=== PATIENT | male | born 1940 | race American Indian/Alaskan Native ===

== ENCOUNTER 2016-07-26 22:03 | Emergency (ER) | payer MEDICARE ==
--- NOTE | 2016-07-27 00:21 | Emergency Department Report ---
HPI - General Chief Complaint: Fall Time Seen by Provider: 07/27/16 00:12 - HPI HPI: Room 18 The patient is a 75-year-old male presenting with a chief complaint of fall from bed. The patient was sent from skilled nursing for evaluation after he fell to the floor falling out of bed. Patient reportedly fell 2 feet from the bed was found supine on the floor. The patient has a history of Alzheimer's and does not respond to questions. Location: Unknown Duration: [see above] Quality: Unknown Severity: Unknown Modifying factors: [see above] Context: [see above] Mode of transportation: [not driving] ED Past Medical Hx - Past Medical History Previous Medical History?: Yes Hx Hypertension: Yes Hx Renal Disease: Yes (UNSPECIFIC) Hx Psychiatric Treatment: Yes Hx Dementia: Yes Additional medical history: ALZHEIMER'S, UNSPECIFIED RENAL FAILURE, HYPERTENSION , INSOMNIA, MOOD D/O, SENILE DEMENTIA, ACUTE RESPIRATORY FAILURE, GENERALIZED MUSCLE WEAKNESS, - Surgical History Past Surgical History?: Yes Additional Surgical History: UNKNOWN. - Family History Family history: no significant - Social History Smoking Status: Never Smoker Substance Use Type: None - Medications Home Medications: Home Medications Medication Instructions Recorded Confirmed Last Taken Type Calcium Carbonate/Vitamin D3 1 each PO BID 01/13/14 01/13/14 01/13/14 History [Oystercal-D 500 mg-400 Unit Tb] Cholecalciferol (Vitamin D3) 50,000 unit PO DAILY 01/13/14 01/13/14 01/13/14 History [Vitamin D3] Divalproex Dr [Depakote Dr] 250 mg PO BID 01/13/14 01/13/14 01/13/14 History Donepezil HCl [Aricept Odt] 10 mg PO QDAY 01/13/14 01/13/14 01/13/14 History Lisinopril [Zestril] 5 mg PO QDAY 01/13/14 01/13/14 01/13/14 History Memantine (Nf) [Namenda] 5 mg PO QDAY 01/13/14 01/13/14 01/13/14 History Quetiapine Fumarate [Seroquel XR] 50 mg PO QDAY 01/13/14 01/13/14 01/13/14 History amLODIPine [Norvasc] 10 mg PO DAILY 01/13/14 01/13/14 01/13/14 History ED Review of Systems ROS: Stated complaint: FALL Other details as noted in HPI Comment: Unobtainable due to pts medical conditions Physical Exam - Physical Exam Vital Signs: Vital Signs 07/27/16 00:17 Pulse Rate 58 L Respiratory 16 Rate Blood Pressure 143/65 [Right] O2 Sat by Pulse 100 Oximetry Physical Exam: GENERAL: The patient is well-developed well-nourished male lying on stretcher not appearing to be in acute distress. [] HEENT: Normocephalic. Atraumatic. Extraocular motions are intact. Patient has moist mucous membranes. NECK: Supple. Trachea midline. No axial step offs CHEST/LUNGS: Clear to auscultation. There is no respiratory distress noted. HEART/CARDIOVASCULAR: Regular. There is no tachycardia. There is no gallop rub or murmur. ABDOMEN: Abdomen is soft, nontender. Patient has normal bowel sounds. There is no abdominal distention. SKIN: There is no rash. There is no edema. There is no diaphoresis. NEURO: The patient is awake and alert but does not respond verbally. Patient makes eye contact. The patient moves all 4 extremities. The patient does not cooperate with neurologic exam MUSCULOSKELETAL: There is no tenderness to palpation of all extremities. There is no evidence of acute injury. ED Course Vital Signs 07/27/16 00:17 Pulse Rate 58 L Respiratory 16 Rate Blood Pressure 143/65 [Right] O2 Sat by Pulse 100 Oximetry ED Medical Decision Making - Radiology Data Radiology results: report reviewed (CT head, CT cervical spine), image reviewed (pelvis x-ray, CT head, CT cervical spine) interpreted by me: Pelvis x-ray-no acute fractures ED cervical spine (read by radiologist)-there is no evidence of cervical spine fracture or subluxation. Degenerative changes CT head (read by radiologist)-there is no acute intracranial abnormality identified. - Differential Diagnosis closed head injury, ICH, cervical fracture, pelvic fracture Critical care attestation.: If time is entered above; I have spent that time in minutes in the direct care of this critically ill patient, excluding procedure time. ED Disposition Clinical Impression: Fall, Examination following fall from height with no apparent injury Disposition: DISCHARGED TO HOME OR SELFCARE Is pt being admited?: No Does the pt Need Aspirin: No Condition: Stable Additional Instructions: Return to the emergency department immediately should you develop worsening symptoms, fever, inability to tolerate food or liquid or any other concerns. Referrals: PRIMARY CARE, [Primary Care Provider] - 3-5 Days Time of Disposition: 05:04
--- NOTE | 2016-07-27 04:53 | Cat Scan Report ---
FINAL REPORT EXAM: CT HEAD/BRAIN WO CON HISTORY: fall from bed TECHNIQUE: CT of the head was performed. No intravenous contrast was administered. PRIORS: None. FINDINGS: There is advanced cerebral atrophy. Enlargement of the cerebral ventricles likely relates to ex vacuo dilatation. There is moderate ischemic change in the white matter. 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 There is no evidence of intracranial hemorrhage. There is no edema, mass effect or midline shift. There are no abnormal extra-axial fluid collections. The ventricles are appropriate for brain volume. There is no skull fracture seen. The visualized aspects of the sinuses are clear. IMPRESSION: There is no acute intracranial abnormality identified. Advanced cerebral atrophy
--- NOTE | 2016-07-27 04:55 | Cat Scan Report ---
FINAL REPORT EXAM: CT CERVICAL SPINE WO CON HISTORY: fall from bed TECHNIQUE: A noncontrast CT of the cervical spine was performed. Coronal and sagittal reformatted images were obtained. PRIORS: None. FINDINGS: Vertebral body heights and alignment are maintained. There is no evidence of acute fracture. There is multilevel degenerative disc disease which is most notable at C5-6 and C6-7. Posterior and uncovertebral spurring at C5-6 causes mild spinal stenosis and mild to moderate neuroforaminal narrowing, right more than left. There mild to moderate multilevel facet degenerative disease. IMPRESSION: There is no evidence of cervical spine fracture or subluxation. Degenerative changes
[2016-07-27 05:46] VITALS: BP 148/82
--- NOTE | 2016-07-27 07:38 | XRay Report ---
PELVIS RADIOGRAPH INDICATION: Found lying on floor. COMPARISON: None similar at this institution. FINDINGS: Portable, single frontal pelvic radiograph demonstrates intact articulation, including SI and hip joints. Few degenerative changes. Atherosclerotic vascular calcifications. Nonobstructive bowel gas pattern. CONCLUSION: No acute radiographic abnormality. Thank you for the opportunity to participate in this patient's care.
== END 2016-07-27 05:43 | disposition home or self-care (01) ==
LOC: ED 22:03
DX: Z04.3 Encounter for examination and observation following other accident (principal); I10 Essential (primary) hypertension; N28.9 Disorder of kidney and ureter, unspecified; G30.1 Alzheimer's disease with late onset; F02.80 Dementia in other diseases classified elsewhere, unspecified severity, without behavioral disturbance, psychotic disturbance, mood disturbance, and anxiety; N17.9 Acute kidney failure, unspecified; W06.XXXA Fall from bed, initial encounter; Y93.89 Activity, other specified; Y99.8 Other external cause status; Y92.122 Bedroom in nursing home as the place of occurrence of the external cause
CPT/HCPCS: 70450; 72125; 72170

== ENCOUNTER 2019-01-24 13:46 | Inpatient (IN) | payer MEDICARE ==
[2019-01-24] MEDS ORDERED: SODIUM CHLORIDE 0.9% 1000 ML 1,000 ML IV ONE (14:25)
--- NOTE | 2019-01-24 14:32 | Emergency Department Report ---
ED Altered Mental Status HPI - General Stated Complaint: HYPOTENSION Time Seen by Provider: 01/24/19 14:17 Source: EMS - History of Present Illness Initial Comments: 78-year-old male, history of dementia, presents to ED for altered mental status. snf reports they were attempting to the patient when he "stopped breathing" and became unresponsive. The nonrebreather was placed on patient and EMS was called. It is unclear how long patient was unresponsive. Upon EMS arrival, the patient was lethargic, but responsive to noxious stimuli. Patient was hypotensive, with systolic BP in the 80s. EMS was unable to record a room air O2 sat. Patient is currently awake, looking around the room, much more responsive. At baseline, patient is nonverbal. MD Complaint: altered mental status -: minutes(s) (30) Severity: moderate Consistency of Symptoms: waxing and waning Context: unknown Treatments Prior to Arrival: IV fluid, oxygen - Related Data Home Medications Medication Instructions Recorded Confirmed Last Taken Calcium Carbonate/Vitamin D3 1 each PO BID 01/13/14 01/13/14 01/13/14 [Oystercal-D 500 mg-400 Unit Tb] Cholecalciferol (Vitamin D3) 50,000 unit PO DAILY 01/13/14 01/13/14 01/13/14 [Vitamin D3] Divalproex Dr [Jil Johnson] 250 mg PO BID 01/13/14 01/13/14 01/13/14 Donepezil HCl [Aricept Odt] 10 mg PO QDAY 01/13/14 01/13/14 01/13/14 Lisinopril [Zestril] 5 mg PO QDAY 01/13/14 01/13/14 01/13/14 Memantine [Namenda] 5 mg PO QDAY 01/13/14 01/13/14 01/13/14 Quetiapine Fumarate [Seroquel XR] 50 mg PO QDAY 01/13/14 01/13/14 01/13/14 amLODIPine [Norvasc] 10 mg PO DAILY 01/13/14 01/13/14 01/13/14 Allergies Allergy/AdvReac Type Severity Reaction Status Date / Time No Known Allergies Allergy Verified 01/24/19 14:26 ED Review of Systems ROS: Stated complaint: HYPOTENSION Other details as noted in HPI Comment: Unobtainable due to pts medical conditions ED Past Medical Hx - Past Medical History Hx Hypertension: Yes Hx Renal Disease: Yes (UNSPECIFIC) Hx Psychiatric Treatment: Yes Hx Dementia: Yes Additional medical history: ALZHEIMER'S, UNSPECIFIED RENAL FAILURE, HYPERTENSION, INSOMNIA, MOOD D/O, SENILE DEMENTIA, ACUTE RESPIRATORY FAILURE, GENERALIZED MUSCLE WEAKNESS, - Surgical History Additional Surgical History: UNKNOWN. - Social History Smoking Status: Never Smoker Substance Use Type: None - Medications Home Medications: Home Medications Medication Instructions Recorded Confirmed Last Taken Type Calcium Carbonate/Vitamin D3 1 each PO BID 01/13/14 01/13/14 01/13/14 History [Oystercal-D 500 mg-400 Unit Tb] Cholecalciferol (Vitamin D3) 50,000 unit PO DAILY 01/13/14 01/13/14 01/13/14 History [Vitamin D3] Divalproex Dr [Depakote Dr] 250 mg PO BID 01/13/14 01/13/14 01/13/14 History Donepezil HCl [Aricept Odt] 10 mg PO QDAY 01/13/14 01/13/14 01/13/14 History Lisinopril [Zestril] 5 mg PO QDAY 01/13/14 01/13/14 01/13/14 History Memantine [Namenda] 5 mg PO QDAY 01/13/14 01/13/14 01/13/14 History Quetiapine Fumarate [Seroquel XR] 50 mg PO QDAY 01/13/14 01/13/14 01/13/14 History amLODIPine [Norvasc] 10 mg PO DAILY 01/13/14 01/13/14 01/13/14 History ED Physical Exam - General General appearance: alert, in no apparent distress - Head Head exam: Present: atraumatic, normocephalic - Eye Eye exam: Present: normal appearance - ENT ENT exam: Present: mucous membranes dry - Neck Neck exam: Present: normal inspection - Respiratory Respiratory exam: Present: normal lung sounds bilaterally. Absent: respiratory distress, wheezes, rales, rhonchi, stridor - Cardiovascular Cardiovascular Exam: Present: regular rate, normal rhythm - GI/Abdominal GI/Abdominal exam: Present: soft. Absent: distended, tenderness - Extremities Exam Extremities exam: Present: normal inspection - Neurological Exam Neurological exam: Present: alert, other (nonverbal, sitting up in stretcher, looks around room, turns head when name is called) - Psychiatric Psychiatric exam: Present: normal affect, normal mood ED Course Vital Signs 01/24/19 01/24/19 01/24/19 13:54 14:01 14:09 Pulse Rate 91 H 88 Respiratory 13 16 Rate Blood Pressure 112/67 112/67 Blood Pressure [Left] O2 Sat by Pulse 85 88 99 Oximetry 01/24/19 01/24/19 01/24/19 14:11 14:21 14:30 Pulse Rate 93 H 86 93 H Respiratory 22 12 23 Rate Blood Pressure 112/67 112/67 108/46 Blood Pressure [Left] O2 Sat by Pulse 69 L 88 Oximetry 01/24/19 01/24/19 01/24/19 14:41 14:51 15:00 Pulse Rate 90 85 77 Respiratory 13 14 10 L Rate Blood Pressure 108/46 108/46 110/59 Blood Pressure [Left] O2 Sat by Pulse 65 L 100 Oximetry 01/24/19 01/24/19 01/24/19 15:08 15:11 15:21 Pulse Rate 77 78 110 H Respiratory 12 10 L 19 Rate Blood Pressure 110/59 110/59 Blood Pressure 110/59 [Left] O2 Sat by Pulse 100 100 99 Oximetry 01/24/19 01/24/19 01/24/19 15:30 15:41 15:51 Pulse Rate 93 H 91 H 81 Respiratory 21 15 17 Rate Blood Pressure 114/69 114/69 114/69 Blood Pressure [Left] O2 Sat by Pulse 49 L Oximetry 01/24/19 01/24/19 01/24/19 16:16 16:21 16:30 Pulse Rate 82 79 Respiratory 11 L 12 Rate Blood Pressure 114/69 108/71 101/70 Blood Pressure [Left] O2 Sat by Pulse 46 L 62 L 53 L Oximetry 01/24/19 01/24/19 01/24/19 16:41 16:51 17:00 Pulse Rate 70 123 H 81 Respiratory 10 L 16 18 Rate Blood Pressure 101/70 114/69 120/54 Blood Pressure [Left] O2 Sat by Pulse 62 L 85 Oximetry 01/24/19 01/24/19 01/24/19 17:10 17:21 17:30 Pulse Rate 77 80 82 Respiratory 11 L 19 16 Rate Blood Pressure 101/70 120/54 119/63 Blood Pressure [Left] O2 Sat by Pulse 51 L 56 L 93 Oximetry 01/24/19 01/24/19 01/24/19 17:41 17:51 18:01 Pulse Rate 78 119 H 99 H Respiratory 18 21 20 Rate Blood Pressure 119/63 119/63 112/56 Blood Pressure [Left] O2 Sat by Pulse 50 L 66 L Oximetry 01/24/19 01/24/19 01/24/19 18:11 18:14 18:21 Pulse Rate 85 85 86 Respiratory 24 16 22 Rate Blood Pressure 112/56 112/56 Blood Pressure 112/56 [Left] O2 Sat by Pulse 95 99 91 Oximetry 01/24/19 01/24/19 01/24/19 18:31 18:41 18:51 Pulse Rate 86 74 79 Respiratory 25 H 23 16 Rate Blood Pressure 106/64 106/64 106/64 Blood Pressure [Left] O2 Sat by Pulse 100 95 81 L Oximetry 01/24/19 01/24/19 01/24/19 19:01 19:11 19:21 Pulse Rate 79 82 78 Respiratory 21 14 20 Rate Blood Pressure 133/69 133/69 133/69 Blood Pressure [Left] O2 Sat by Pulse 96 76 L 100 Oximetry 01/24/19 01/24/19 01/24/19 19:31 19:41 19:51 Pulse Rate 74 88 73 Respiratory 16 24 25 H Rate Blood Pressure 123/48 123/48 123/48 Blood Pressure [Left] O2 Sat by Pulse 100 100 98 Oximetry - Lab Data Result diagrams: 01/24/19 14:44 01/24/19 14:44 Lab Results 01/24/19 01/24/19 01/24/19 Range/Units 14:44 14:44 14:44 WBC 5.5 (4.5-11.0) K/mm3 RBC 3.99 (3.65-5.03) M/mm3 Hgb 11.2 L (11.8-15.2) gm/dl Hct 34.9 L (35.5-45.6) % MCV 88 (84-94) fl MCH 28 (28-32) pg MCHC 32 (32-34) % RDW 16.4 H (13.2-15.2) % Plt Count 367 (140-440) K/mm3 Lymph % (Auto) 18.2 (13.4-35.0) % [place] % (Auto) 5.6 (0.0-7.3) % Eos % (Auto) 0.5 (0.0-4.3) % Baso % (Auto) 2.8 H (0.0-1.8) % Lymph # 1.0 L (1.2-5.4) K/mm3 [place] # 0.3 (0.0-0.8) K/mm3 Eos # 0.0 (0.0-0.4) K/mm3 Baso # 0.2 H (0.0-0.1) K/mm3 Seg Neutrophils % 72.9 H (40.0-70.0) % Seg Neutrophils # 4.0 (1.8-7.7) K/mm3 Sodium 144 (137-145) mmol/L Potassium 4.2 (3.6-5.0) mmol/L Chloride 104.1 (98-107) mmol/L Carbon Dioxide 22 (22-30) mmol/L Anion Gap 22 mmol/L BUN 42 H (9-20) mg/dL Creatinine 1.5 (0.8-1.5) mg/dL Estimated GFR 55 ml/min BUN/Creatinine Ratio 28 % Glucose 130 H (75-100) mg/dL Calcium 9.8 (8.4-10.2) mg/dL Total Bilirubin 1.10 (0.1-1.2) mg/dL Direct Bilirubin 0.2 (0-0.2) mg/dL Indirect Bilirubin 0.9 mg/dL AST 18 (5-40) units/L ALT 21 (7-56) units/L Alkaline Phosphatase 69 (35-129) units/L Troponin T < 0.010 (0.00-0.029) ng/mL Total Protein 8.2 (6.3-8.2) g/dL Albumin 3.8 L (3.9-5) g/dL Albumin/Globulin Ratio 0.9 % - EKG Data -: EKG Interpreted by Wy EKG shows normal: sinus rhythm, axis, intervals, QRS complexes, ST-T waves Rate: normal Interpretation: no acute changes - Radiology Data Radiology results: report reviewed, image reviewed - Medical Decision Making 78-year-old male presents to ED for what seems to have been a syncopal episode at the skilled nursing. Patient was initially hypotensive, however responded well to IV fluids. Patient seems to be having baseline at this time. Workup is unremarkable except for acute kidney injury. Chest x-ray and head CT were normal. EKG is normal. Will admit to hospitalist for observation. - Differential Diagnosis arrythmia, infection, dehydration Critical care attestation.: If time is entered above; I have spent that time in minutes in the direct care o f this critically ill patient, excluding procedure time. ED Disposition Clinical Impression: Syncope, Acute kidney injury Disposition: [id number] OP ADMIT IP TO THIS HOSP Is pt being admited?: Yes Condition: Stable Time of Disposition: 16:54
--- NOTE | 2019-01-24 14:49 | XRay Report ---
CHEST 1 VIEW 01/24/2019 2:26 PM INDICATION / CLINICAL INFORMATION: Altered mental status. COMPARISON: None available. FINDINGS: SUPPORT DEVICES: None. HEART / MEDIASTINUM: Normal heart size. Atherosclerosis in the thoracic aorta. LUNGS / PLEURA: No significant pulmonary or pleural abnormality. No pneumothorax. ADDITIONAL FINDINGS: No significant additional findings. IMPRESSION: 1. No acute findings. Signer Name: Nasim Crandall MD Signed: 01/24/2019 2:45 PM Workstation Name: [id number]
[2019-01-24 15:07] LABS: Basophils # (Auto) 0.2 K/mm3 (0.0-0.1); Basophils % (Auto) 2.8 % (0.0-1.8); Eosinophils % (Auto) 0.5 % (0.0-4.3); Hematocrit 34.9 % (35.5-45.6); Hemoglobin 11.2 gm/dl (11.8-15.2); Lymphocytes % (Auto) 18.2 % (13.4-35.0); Mean Corpuscular HGB Conc 32 % (32-34); Mean Corpuscular Volume 88 fl (84-94); Monocytes # (Auto) 0.3 K/mm3 (0.0-0.8); Monocytes % (Auto) 5.6 % (0.0-7.3); Platelet Count 367 K/mm3 (140-440); Red Blood Count 3.99 M/mm3 (3.65-5.03); Red Cell Distribution Width 16.4 % (13.2-15.2)
[2019-01-24 15:29] LABS: Albumin 3.8 g/dL (3.9-5); Bilirubin,Direct 0.2 mg/dL (0-0.2); Calcium 9.8 mg/dL (8.4-10.2)
--- NOTE | 2019-01-24 16:41 | Cat Scan Report ---
CT head/brain wo con INDICATION / CLINICAL INFORMATION: 78 years Male; AMS. TECHNIQUE: Routine CT head without contrast. All CT scans at this location are performed using CT dos e reduction for ALARA by means of automated exposure control. COMPARISON: The study is compared to the previous CT of 07/27/2016. FINDINGS: BRAIN / INTRACRANIAL CONTENTS: The motion degrades image quality. However, there appears to be extens sunita cerebral white matter disease most consistent with microvascular angiopathy. There is a persisten t old infarct involving the right thalamus at. There is no clear CT evidence of acute intracranial he morrhage or significant mass effect. There is enlargement of the third and lateral ventricles which may have slightly progressed from the previous CT and correlation would be needed regarding normal pressure hydrocephalus. There is again n ote of developmental cavum septum vergae. ORBITS: No significant abnormality of visualized orbits. SINUSES / MASTOIDS: No significant abnormality the visualized paranasal sinuses or mastoid air cells. This mild angulation of the right nasal bone which appears chronic at; correlation be needed. CRANIOCERVICAL JUNCTION: No significant abnormality. ADDITIONAL FINDINGS: None. IMPRESSION: 1. 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 2. There is prominence of the ventricular system which may be slightly out of proportion to the degre e of cerebral atrophy and correlation would be needed regarding normal pressure hydrocephalus. Signer Name: Antonio Da Silva MD Signed: 01/24/2019 4:37 PM Workstation Name: [id number]
--- NOTE | 2019-01-24 17:17 | History and Physical Report ---
History of Present Illness Date of examination: 01/24/19 Date of admission: 01/24/19 Chief complaint: Syncope History of present illness: 78-year-old male, history of dementia, presents to ED from SNF for altered mental status. alf reports they were attempting to feed the patient when he "stopped breathing" and became unresponsive. The nonrebreather was p laced on patient and EMS was called. It is unclear how long patient was unresponsive. Upon EMS arrival, the patient was lethargic, but responsive to noxious stimuli. Patient was hypotensive, with systolic BP in the 80s. EMS was unable to record a room air O2 sat. Patient is currently awake, looking around the room, much more responsive, has no respiratory distress. At baseline, patient is nonverbal. CT head showed hydrocephalus, CXR w/o any acute findings. He is being admitted for O/N observation. Review of System: Unobtainable Medications and Allergies Allergies Allergy/AdvReac Type Severity Reaction Status Date / Time No Known Allergies Allergy Verified 01/24/19 14:26 Home Medications Medication Instructions Recorded Confirmed Last Taken Type Calcium Carbonate/Vitamin D3 1 each PO BID 01/13/14 01/13/14 01/13/14 History [Oystercal-D 500 mg-400 Unit Tb] Cholecalciferol (Vitamin D3) 1,000 unit PO DAILY 01/13/14 01/25/19 01/13/14 History [Vitamin D3] Divalproex [Jil Johnson] 250 mg PO BID 01/13/14 01/13/14 01/13/14 History Donepezil HCl [Aricept Odt] 10 mg PO QHS 01/13/14 01/25/19 01/13/14 History Lisinopril [Zestril] 5 mg PO QDAY 01/13/14 01/25/19 01/13/14 History Memantine [Namenda] 5 mg PO BID 01/13/14 01/25/19 01/13/14 History Quetiapine Fumarate [Seroquel XR] 50 mg PO QDAY 01/13/14 01/13/14 01/13/14 History amLODIPine [Norvasc] 10 mg PO DAILY 01/13/14 01/25/19 01/13/14 History Aspirin [Aspirin BABY CHEW TAB] 81 mg PO QDAY 01/25/19 01/25/19 Unknown History AtorvaSTATin [Lipitor] 40 mg PO QHS 01/25/19 01/25/19 Unknown History Latanoprost 0.005% 1 drop OU QHS 01/25/19 01/25/19 Unknown History Magnesium Hydroxide [Milk of 30 ml PO Q72H 01/25/19 01/25/19 Unknown History Magnesia] Active Meds: Active Medications Divalproex Sodium (Depakote Dr) 250 mg PO BID YUDITH Dextrose/Sodium Chloride (D5ns) 1,000 mls @ 75 mls/hr IV DIRECT YUDITH Memantine (Memantine) 5 mg PO QDAY YUDITH Miscellaneous Medication (Calcium Carbonate/Vitamin D3 [Oystercal-D 500 Mg-400 Unit Tb]) 1 each PO BID YUDITH Miscellaneous Medication (Cholecalciferol (Vitamin D3) [Vitamin D3]) 50,000 unit PO DAILY YUDITH Miscellaneous Medication (Donepezil Hcl [Aricept Odt]) 10 mg PO QDAY YUDITH Miscellaneous Medication (Quetiapine Fumarate [Seroquel Xr]) 50 mg PO QDAY YUDITH Exam - Physical Exam Narrative exam: GENERAL: mal-nourished elderly AAM lying on bed appeared to be in no discomfort. HEENT: Normocephalic. Atraumatic. No conjunctival congestion or icterus. Patient has moist mucous membranes. NECK: Supple. Trachea midline. CHEST/LUNGS: Clear to auscultated bilaterally, breathing nonlabored. No wheezes crackles or rhonchi. HEART/CARDIOVASCULAR: Regular in rate and rhythm. S1 and S2 positive. ABDOMEN: Abdomen is soft, nontender. Patient has normal bowel sounds. SKIN: There is no rash. Warm and dry. NEURO: No focal motor deficit. does not Follow command. MUSCULOSKELETAL: No joint effusion or tenderness. EXTRIMITY: No edema, no cyanosis or clubbing. PSYCH: Cooperative. - Constitutional Vitals: Temp Pulse Resp BP Pulse Ox 77 12 110/59 100 01/24/19 15:08 01/24/19 15:08 01/24/19 15:08 01/24/19 15:08 Results - Labs CBC & Chem 7: 01/24/19 14:44 01/24/19 14:44 Labs: Abnormal lab results 01/24/19 01/24/19 Range/Units 14:44 14:44 Hgb 11.2 L (11.8-15.2) gm/dl Hct 34.9 L (35.5-45.6) % RDW 16.4 H (13.2-15.2) % Baso % (Auto) 2.8 H (0.0-1.8) % Lymph # 1.0 L (1.2-5.4) K/mm3 Baso # 0.2 H (0.0-0.1) K/mm3 Seg Neutrophils % 72.9 H (40.0-70.0) % BUN 42 H (9-20) mg/dL Glucose 130 H (75-100) mg/dL Albumin 3.8 L (3.9-5) g/dL Assessment and Plan Syncopal episode Acute respiratory distress,resolved History of dementia Hypotension - baseline BP unknown, could be from dehydration Normal pressure hydrocephalus (NPH) Severe PCM - admit to remote tele - start on iv fluid, get speech eval - monitor BP, resume home meds - Neuro consult for NPH - monitor clinically, dietary consult - get 2d echo, carotid doppler - DVT Px Radiological data: Chest x-ray: 1. No acute findings. CT head without contrast: 1. 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 2. There is prominence of the ventricular system which may be slightly out of proportion to the degree of cerebral atrophy and correlation would be needed regarding normal pressure hydrocephalus.
[2019-01-24] MEDS ORDERED: ACETAMINOPHEN 325 MG TAB PO PRN (18:26)
[2019-01-24] MEDS ORDERED: hydrALAZINE 20 MG/1 ML INJ IV PRN (18:26)
--- NOTE | 2019-01-24 18:29 | Consultation ---
History of Present Illness Consult date: 01/24/19 Chief complaint: abnormal CT head History of present illness: This is a 78 YO M who reported to the ED after being found altered, respiratory distress. Apparently pt is non verbal at baseline. Unclear if he walks or is continent. Notes say he has dementia. Past History Past Medical History: other (dementia) Past Surgical History: Other (unable to obtain) Social history: full code ([place] resident) Family history: other (unable to obtain) Medications and Allergies Allergies Allergy/AdvReac Type Severity Reaction Status Date / Time No Known Allergies Allergy Verified 01/24/19 14:26 Home Medications Medication Instructions Recorded Confirmed Last Taken Type Calcium Carbonate/Vitamin D3 1 each PO BID 01/13/14 01/13/14 01/13/14 History [Oystercal-D 500 mg-400 Unit Tb] Cholecalciferol (Vitamin D3) 50,000 unit PO DAILY 01/13/14 01/13/14 01/13/14 History [Vitamin D3] Divalproex Dr [Jil Johnson] 250 mg PO BID 01/13/14 01/13/14 01/13/14 History Donepezil HCl [Aricept Odt] 10 mg PO QDAY 01/13/14 01/13/14 01/13/14 History Lisinopril [Zestril] 5 mg PO QDAY 01/13/14 01/13/14 01/13/14 History Memantine [Namenda] 5 mg PO QDAY 01/13/14 01/13/14 01/13/14 History Quetiapine Fumarate [Seroquel XR] 50 mg PO QDAY 01/13/14 01/13/14 01/13/14 History amLODIPine [Norvasc] 10 mg PO DAILY 01/13/14 01/13/14 01/13/14 History Active Meds: Active Medications Calcium/Vitamin D (Oysco D 500 Mg-200 Unit) 1 each PO QDAY YUDITH Divalproex Sodium (Janeente Dr) 250 mg PO BID YUDITH Donepezil HCl (Aricept) 10 mg PO QDAY YUDITH Ergocalciferol (Vitamin D2) 50,000 unit PO Tu YUDITH Dextrose/Sodium Chloride (D5ns) 1,000 mls @ 75 mls/hr IV DIRECT YUDITH Memantine (Memantine) 5 mg PO QDAY YUDITH Miscellaneous Medication (Quetiapine Fumarate [Seroquel Xr]) 50 mg PO QDAY YUDITH Review of Systems ROS unobtainable: due to mental status Physical Examination - Vital Signs Vital Signs: Vital Signs Pulse Resp BP Pulse Ox 88 16 112/67 99 01/24/19 14:09 01/24/19 14:09 01/24/19 14:09 01/24/19 14:09 - EENT EENT: Present: PERRL, mucous membranes moist - Respiratory Respiratory: Present: lungs clear - Cardiovascular Cardiovascular: Present: regular rate - Gastrointestinal Gastrointestinal: Present: normoactive bowel sounds - Integumentary Integumentary: Present: normal - Neurologic Cranial nerve examination: PERRL, EOMI, V1/V2/V3 grossly intact, face symmetric Speech examination: other (non verbal) Detailed motor examination: other (increased tone in all extremities, moves spontaneously) Results - Laboratory Findings CBC and BMP: 01/24/19 14:44 01/24/19 14:44 Abnormal Lab Findings: Abnormal Labs 01/24/19 01/24/19 14:44 14:44 Hgb 11.2 L Hct 34.9 L RDW 16.4 H Baso % (Auto) 2.8 H Lymph # 1.0 L Baso # 0.2 H Seg Neutrophils % 72.9 H BUN 42 H Glucose 130 H Albumin 3.8 L - Diagnostic Findings Additional findings: CT head with ventriculomegaly, MAY be out of proportion to atrophy Assessment and Plan Abnormal CT head REcommend: Consulted for possible NPH- treatment would be shunt and would be determined outpatient. However, doubt pt is a good candidate for shunt. Would need to determine how he ambulates and if this declined recently. If he walks well or if he has not walked in a while shunt will not be helpful. Follow up with neuro outpatient
[2019-01-24] MEDS: D5W/0.9% NACL 1,000 ML IV SCH (21:23)
[2019-01-24] MEDS: DIVALPROEX DR 250 MG TAB PO SCH (21:24)
[2019-01-24] MEDS: FAMOTIDINE 10 MG TAB PO SCH (21:24)
[2019-01-24] MEDS: ENOXAPARIN 30 MG/0.3 ML INJ SUB-Q SCH (21:24)
[2019-01-24] MEDS ORDERED: ENOXAPARIN 40 MG/0.4 ML INJ SUB-Q SCH (22:00)
[2019-01-24] MEDS ORDERED: CALCIUM CARBONATE PO SCH (22:00)
[2019-01-24] MEDS ORDERED: [UNRECOGNIZED DRUG - OTHER] PO SCH (22:00)
[2019-01-24] MEDS ORDERED: VITAMIN D3 PO SCH (22:00)
[2019-01-25 08:18] LABS: Bacteria,Urine 4+ /HPF (Negative); Bilirubin,Urine NEG (Negative); Blood,Urine MOD (Negative); Color,Urine Yellow (Yellow); Mucus,Urine FEW /HPF; Urobilinogen,Urine < 2.0 mg/dL (<2.0)
[2019-01-25] MEDS: DONEPEZIL 10 MG TAB PO SCH (09:37)
[2019-01-25] MEDS: MEMANTINE 5 MG TAB PO SCH (09:38)
[2019-01-25] MEDS: FAMOTIDINE 10 MG TAB PO SCH ×2 (09:38→21:56)
[2019-01-25] MEDS: CALCIUM CARBONATE/VITAMIN D3 500 MG-200 UNIT TAB PO SCH (09:38)
[2019-01-25] MEDS: DIVALPROEX DR 250 MG TAB PO SCH ×2 (09:38→21:56)
[2019-01-25] MEDS ORDERED: DONEPEZIL HCL 10 MG PO SCH (10:00)
[2019-01-25] MEDS ORDERED: CHOLECALCIFEROL 50000 UNIT PO SCH (10:00)
[2019-01-25] MEDS ORDERED: QUETIAPINE FUMARATE 50 MG PO SCH (10:00)
[2019-01-25 10:56] LABS: BUN/Creatinine Ratio 33; Blood Urea Nitrogen 39 mg/dL (9-20); Calcium 9.1 mg/dL (8.4-10.2); Hemolysis Index 0
--- NOTE | 2019-01-25 12:00 | Vascular Lab Report ---
Bilateral Carotid Doppler Ultrasound INDICATION : syncope TECHNIQUE: Grayscale and color Doppler imaging performed through the neck. COMPARISON: None FINDINGS: Right: There is no significant atherosclerotic disease. Peak systolic velocity in the CCA is 80 cm/ s with end-diastolic velocity of 12 cm/s. Peak systolic velocity in the proximal ICA is 80 cm/s with end-diastolic velocity of 13 cm/s. ICA to CCA ratio is less than 2. There is antegrade flow in the E CA and the vertebral artery. Left: There is no significant atherosclerotic disease. Peak systolic velocity in the CCA is 85 cm/s w ith end-diastolic velocity of 12 cm/s. Peak systolic velocity in the proximal ICA is 84 cm/s with end -diastolic velocity of 13 cm/s. ICA to CCA ratio is less than 2. There is antegrade flow in the ECA and the vertebral artery. IMPRESSION: No hemodynamically significant stenosis by NASCET criteria. Signer Name: Devon Gómez MD Signed: 01/25/2019 11:56 AM Workstation Name: [id number]
[2019-01-25] MEDS: D5W/0.9% NACL 1,000 ML IV SCH (12:37)
[2019-01-25] MEDS: DEXTROSE 5% IN WATER 1,000 ML IV SCH (20:08)
[2019-01-25] MEDS: ENOXAPARIN 30 MG/0.3 ML INJ SUB-Q SCH (21:56)
--- NOTE | 2019-01-25 23:33 | Progress Note ---
Assessment and Plan Assessment and plan: Syncopal episode Acute respiratory distress,resolved History of dementia Hypotension - baseline BP unknown, could be from dehydration Normal pressure hydrocephalus (NPH) Severe PCM UTI - admitted to remote tele - get speech eval - monitor BP, resume home meds - Neuro consult for NPH - monitor clinically, dietary consult - DVT Px History Interval history: Patient presented with syncope Hospitalist Physical - Physical exam Narrative exam: GENERAL: mal-nourished elderly AAM lying on bed appeared to be in no discomfort. HEENT: Normocephalic. Atraumatic. No conjunctival congestion or icterus. Patient has moist mucous membranes. NECK: Supple. Trachea midline. CHEST/LUNGS: Clear to auscultated bilaterally, breathing nonlabored. No wheezes crackles or rhonchi. HEART/CARDIOVASCULAR: Regular in rate and rhythm. S1 and S2 positive. ABDOMEN: Abdomen is soft, nontender. Patient has normal bowel sounds. SKIN: There is no rash. Warm and dry. NEURO: No focal motor deficit. does not Follow command. MUSCULOSKELETAL: No joint effusion or tenderness. EXTRIMITY: No edema, no cyanosis or clubbing. PSYCH: Cooperative. - Constitutional Vitals: Temp Pulse Resp BP Pulse Ox 98.0 F 70 18 128/66 91 01/25/19 20:32 01/25/19 12:00 01/25/19 20:32 01/25/19 20:32 01/25/19 13:00 Results - Labs CBC & Chem 7: 01/26/19 05:37 01/26/19 05:37 Labs: Laboratory Last Values WBC 5.5 K/mm3 (4.5-11.0) 01/24/19 14:44 RBC 3.99 M/mm3 (3.65-5.03) 01/24/19 14:44 Hgb 11.2 gm/dl (11.8-15.2) L 01/24/19 14:44 Hct 34.9 % (35.5-45.6) L 01/24/19 14:44 MCV 88 fl (84-94) 01/24/19 14:44 MCH 28 pg (28-32) 01/24/19 14:44 MCHC 32 % (32-34) 01/24/19 14:44 RDW 16.4 % (13.2-15.2) H 01/24/19 14:44 Plt Count 367 K/mm3 (140-440) 01/24/19 14:44 Lymph % (Auto) 18.2 % (13.4-35.0) 01/24/19 14:44 [place] % (Auto) 5.6 % (0.0-7.3) 01/24/19 14:44 Eos % (Auto) 0.5 % (0.0-4.3) 01/24/19 14:44 Baso % (Auto) 2.8 % (0.0-1.8) H 01/24/19 14:44 Lymph # 1.0 K/mm3 (1.2-5.4) L 01/24/19 14:44 [place] # 0.3 K/mm3 (0.0-0.8) 01/24/19 14:44 Eos # 0.0 K/mm3 (0.0-0.4) 01/24/19 14:44 Baso # 0.2 K/mm3 (0.0-0.1) H 01/24/19 14:44 Seg Neutrophils % 72.9 % (40.0-70.0) H 01/24/19 14:44 Seg Neutrophils # 4.0 K/mm3 (1.8-7.7) 01/24/19 14:44 Sodium 148 mmol/L (137-145) H 01/25/19 10:15 Potassium 4.2 mmol/L (3.6-5.0) 01/25/19 10:15 Chloride 111.4 mmol/L (98-107) H 01/25/19 10:15 Carbon Dioxide 23 mmol/L (22-30) 01/25/19 10:15 Anion Gap 18 mmol/L 01/25/19 10:15 BUN 39 mg/dL (9-20) H 01/25/19 10:15 Creatinine 1.2 mg/dL (0.8-1.5) 01/25/19 10:15 Estimated GFR > 60 ml/min 01/25/19 10:15 BUN/Creatinine Ratio 33 % 01/25/19 10:15 Glucose 83 mg/dL (75-100) 01/25/19 10:15 Calcium 9.1 mg/dL (8.4-10.2) 01/25/19 10:15 Total Bilirubin 1.10 mg/dL (0.1-1.2) 01/24/19 14:44 Direct Bilirubin 0.2 mg/dL (0-0.2) 01/24/19 14:44 Indirect Bilirubin 0.9 mg/dL 01/24/19 14:44 AST 18 units/L (5-40) 01/24/19 14:44 ALT 21 units/L (7-56) 01/24/19 14:44 Alkaline Phosphatase 69 units/L (35-129) 01/24/19 14:44 Troponin T < 0.010 ng/mL (0.00-0.029) 01/24/19 14:44 Total Protein 8.2 g/dL (6.3-8.2) 01/24/19 14:44 Albumin 3.8 g/dL (3.9-5) L 01/24/19 14:44 Albumin/Globulin Ratio 0.9 % 01/24/19 14:44 Urine Color Yellow (Yellow) 01/25/19 07:23 Urine Turbidity Slightly-cloudy (Clear) 01/25/19 07:23 Urine pH 6.0 (5.0-7.0) 01/25/19 07:23 Ur Specific [place] 1.020 (1.003-1.030) 01/25/19 07:23 Urine Protein 30 mg/dl mg/dL (Negative) 01/25/19 07:23 Urine Glucose (UA) Neg mg/dL (Negative) 01/25/19 07:23 Urine Ketones Neg mg/dL (Negative) 01/25/19 07:23 Urine Blood Mod (Negative) 01/25/19 07:23 Urine Nitrite Pos (Negative) 01/25/19 07:23 Urine Bilirubin Neg (Negative) 01/25/19 07:23 Urine Urobilinogen < 2.0 mg/dL (<2.0) 01/25/19 07:23 Ur Leukocyte Esterase Lg (Negative) 01/25/19 07:23 Urine WBC (Auto) 63.0 /HPF (0.0-6.0) H 01/25/19 07:23 Urine RBC (Auto) 43.0 /HPF (0.0-6.0) 01/25/19 07:23 U Epithel Cells (Auto) 1.0 /HPF (0-13.0) 01/25/19 07:23 Urine Bacteria (Auto) 4+ /HPF (Negative) 01/25/19 07:23 Urine Mucus Few /HPF 01/25/19 07:23 Active Medications - Current Medications Current Medications: Generic Name Dose Route Start Last Admin Trade Name Freq PRN Reason Stop Dose Admin Acetaminophen 650 mg 01/24/19 18:26 Tylenol PO Q4H PRN Pain MILD(1-3)/Fever >100.5/ARVIZU Calcium/Vitamin D 1 each 01/25/19 10:00 01/25/19 09:38 Oysco D 500 Mg-200 Unit PO Not Given QDAY YUDITH Divalproex Sodium 250 mg 01/24/19 22:00 01/25/19 21:[address] PO 250 mg BID YUDITH Administration Donepezil HCl 10 mg 01/25/19 10:00 01/25/19 09:37 Aricept PO Not Given QDAY YUDITH Enoxaparin Sodium 30 mg 01/24/19 22:00 01/25/19 21:56 Enoxaparin SUB-Q 30 mg DAILY@2200 YUDITH Administration Ergocalciferol 50,000 unit 01/31/19 17:21 Vitamin D2 PO Tu [facility] Famotidine 10 mg 01/24/19 22:00 01/25/19 21:56 Pepcid PO 10 mg BID YUDITH Administration Hydralazine HCl 5 mg 01/24/19 18:26 Apresoline IV Q30MIN PRN HTN SYS>180 GENNA>100 Dextrose 1,000 mls @ 75 mls/hr 01/25/19 13:00 01/25/19 20:08 D5w IV 75 mls/hr DIRECT YUDITH Administration Memantine 5 mg 01/25/19 10:00 01/25/19 09:38 Memantine PO Not Given QDAY YUDITH Nutrition/Malnutrition Assess - Dietary Evaluation Nutrition/Malnutrition Findings: Nutrition Notes Start: 01/25/19 14:03 Freq: Status: Active Protocol: Document 01/25/19 14:03 CT (Rec: 01/25/19 14:15 CT [id number]) Co-Sign 01/25/19 14:03 LM Nutrition Notes Need for Assessment generated from: utility person,MST,Low BMI Initial or Follow up Assessment Current Diagnosis Acute Kidney Injury, Hypertension Other Pertinent Diagnosis Dementia, AMS, Alzheimer's Current Diet NPO Labs/Tests BUN 42 Glu 130 Pertinent Medications D5NS 75 ml/hr Height 5 ft 11 in Weight 49.895 kg [place] Body Weight (kg) 78.18 BMI 15.3 Subjective/Other Information Pt consult for MST score and Low BMI. Pt is nonverbal. Noted temporal, clavicle, and orbital wasting. CHIP SEPARATOR recommends pureed diet with thin liquids. Burn Absent Trauma Absent GI Symptoms None Difficulty In Swallowing Current % PO Negligible Minimum of two criteria Yes Body Fat Depletion Moderate depletion (severe) Muscle Mass Moderate Depletion (severe) #1 Nutrition Diagnosis Malnutrition Etiology secondary to AMS, dementia As Evidenced by Signs and Symptoms BMI of 15.3, fat and muscle wasting Is patient on ventilator? No Is Patient Ambulatory and/or Out of Bed No REE-([facility]-confined to bed) [phone] Kcal/Kg value to use for calculation 40 Approximate Energy Requirements Using 1995 kcal/Kg Calculation Used for Recommendations Kcal/kg Additional Notes Protein needs: 60-75 g/day (1. 2-1.5 g/kg/day) Fluid needs: 1 ml/kcal Nutrition Intervention Change Diet Order: Change to Dysphagia Pureed, Thin Liquids Goal #1 Meet >80% of energy and protein needs Goal #2 Wt. gain/maintenance Anticipated Discharge Needs: Dysphagia Pureed, Thin Liquids Follow-Up By: 01/27/19 Additional Comments Follow up for PO intake
[2019-01-26 06:13] LABS: Hematocrit 26.7 % (35.5-45.6); Hemoglobin 8.5 gm/dl (11.8-15.2); Mean Corpuscular HGB Conc 32 % (32-34); Mean Corpuscular Volume 87 fl (84-94); Platelet Count 290 K/mm3 (140-440); Red Blood Count 3.08 M/mm3 (3.65-5.03); Red Cell Distribution Width 16.2 % (13.2-15.2)
[2019-01-26 06:40] LABS: BUN/Creatinine Ratio 28; Blood Urea Nitrogen 28 mg/dL (9-20); Calcium 8.9 mg/dL (8.4-10.2); Hemolysis Index 7
[2019-01-26] MEDS: DONEPEZIL 10 MG TAB PO SCH (09:38)
[2019-01-26] MEDS: FAMOTIDINE 10 MG TAB PO SCH (09:38)
[2019-01-26] MEDS: DEXTROSE 5% IN WATER 1,000 ML IV SCH (09:38)
[2019-01-26] MEDS: CALCIUM CARBONATE/VITAMIN D3 500 MG-200 UNIT TAB PO SCH (09:39)
[2019-01-26] MEDS: DIVALPROEX DR 250 MG TAB PO SCH (09:39)
[2019-01-26] MEDS: MEMANTINE 5 MG TAB PO SCH (09:39)
[2019-01-26] MEDS ORDERED: cefTRIAXone/NS 1 GM/50 ML 1 GM/50 ML BAG IV SCH (12:00)
--- NOTE | 2019-01-26 13:40 | Discharge Summary ---
Providers - Providers Date of Admission: 01/24/19 16:54 Date of discharge: 01/26/19 Attending physician: TOMÁS FARRIS 01/24/19 17:21 Consult to Physician [CONS] Routine Comment: Consulting Provider: LUIS ANGEL OWEN Physician Instructions: Reason For Exam: NPH 01/24/19 18:26 Speech Therapy Evaluation and Treat [CONS] Routine Reason For Exam: aspiration 01/26/19 07:55 Occupational Therapy Evaluate and Treat [CONS] Routine Comment: Reason For Exam: weakness Physical Therapy Evaluation and Treat [CONS] Routine Comment: Reason For Exam: weakness Primary care physician: YARDER ENGINEER Hospitalization Condition: Fair Hospital course: 78-year-old male, history of dementia, presents to ED from SNF for altered mental status. [facility] reports they were attempting to feed the patient when he "stopped breathing" and became unresponsive. The nonrebreather was placed on patient and EMS was called. It is unclear how long patient was unresponsive. Upon EMS arrival, the patient was lethargic, but responsive to noxious stimuli. Patient was hypotensive, with systolic BP in the 80s. EMS was unable to record a room air O2 sat. Patient is currently awake, looking around the room, much more responsive, has no respiratory distress. At baseline, patient is nonverbal. CT head showed hydrocephalus, CXR w/o any acute findings. He was placed on observation. Syncopal episode Acute respiratory distress,resolved History of dementia Hypotension - baseline BP unknown, could be from dehydration To r/o Normal pressure hydrocephalus. Was evaluated by Neurology. Will need outpatient follow up Severe PCM UTI, Discharged on Ceftin. Disposition: [id number]/[id number] SNF W [facility] CERT - Discharge Diagnoses (1) Acute respiratory failure Status: Acute (2) UTI (urinary tract infection) Status: Acute (3) Syncope Status: Acute Core Measure Documentation - Palliative Care Palliative Care/ Comfort Measures: Not Applicable - Core Measures Any of the following diagnoses?: none Exam - Constitutional Vitals: Temp Pulse Resp BP Pulse Ox 98.0 F 60 18 116/57 92 01/26/19 04:20 01/26/19 12:00 01/26/19 04:20 01/26/19 04:20 01/26/19 10:00 Plan Activity: no restrictions Diet: other (Pureed diet) Plan of Treatment: 1.Follow up with Physician at SNF in 2-3 days. Follow up with: PRIMARY CARE, [Primary Care Provider] - 3-5 Days Prescriptions: cefUROXime [Ceftin] 500 mg PO Q12H 7 Days #28 tablet
[2019-01-26 17:00] VITALS: BP 122/89
[2019-01-26] MEDS ORDERED: ENOXAPARIN 40 MG/0.4 ML INJ SUB-Q SCH (22:00)
[2019-01-31] MEDS ORDERED: ERGOCALCIFEROL (VIT D2) 50,000 UNIT CAP PO SCH (17:21)
== END 2019-01-26 17:20 | DRG 314 ==
LOC: ED 13:46 → 4A 16:54 → OBSVTOIN 01-26 13:30
PROVIDERS: ADMIT Internal Medicine; ATTEND Internal Medicine
DX: I95.9 Hypotension, unspecified (principal); E43 Unspecified severe protein-calorie malnutrition; G91.2 (Idiopathic) normal pressure hydrocephalus; N17.9 Acute kidney failure, unspecified; Z68.1 Body mass index [BMI] 19.9 or less, adult; R55 Syncope and collapse; F03.90 Unspecified dementia, unspecified severity, without behavioral disturbance, psychotic disturbance, mood disturbance, and anxiety; R06.03 Acute respiratory distress; I10 Essential (primary) hypertension; Z79.899 Other long term (current) drug therapy
CPT/HCPCS: 36415; 70450; 71045; 80048; 80076; 81001; 84484; 85025; 85027; 87086; 93005; 93010; 93306; 93880; 96374; G0378; J0696; J1650; J7030; J7042; J7070